=== PATIENT | female | born 1950 | race Caucasian/White ===

== ENCOUNTER 2017-02-05 08:47 | Inpatient (IN) | payer MEDICARE ==
[~2017-02-05] VITALS: Ht 149.9 cm; Wt 78.7 kg
[2017-02-05] VITALS (14 sets, daily range): BP systolic 92–137; BP diastolic 55–99; PULSE 55–72; RESP 10–20; O2SAT 94–100
[2017-02-05] MEDS: Lactated Ringer's 1,000 ML IV SCH ×3 (05:00→10:43)
[2017-02-05] MEDS: Vancomycin Inj 1,250 MG in 0.9% Sodium Chloride 250 ML IV SCH ×2 (06:00→10:00)
[~2017-02-05 08:47] MED LIST: AMT50T PO; Bupivacaine Liposome 1.3% 20 mL Inj INFILTRATE SCH; CeFAZolin Inj 2 GM in IV Premix 1 EACH IV SCH; HYDR-656 PO; MELA1TAB28 PO; OMEP40CA36 PO; OXYC-465 PO; POLY1DRO OP; SENN-133 PO; TIZA4CAP8 PO; TRIA1CAP5 PO; VIT1TABL83 PO
[2017-02-05] MEDS ORDERED: Bupivacaine-MPF 0.5% W/EPI 30 mL Inj INFILTRATE ONE (11:22)
[2017-02-05] MEDS ORDERED: 0.9% Sodium Chloride 10 mL Inj INFILTRATE ONE (11:23)
[2017-02-05] MEDS ORDERED: Lactated Ringer's 500 ML IV PRN (11:39)
[2017-02-05] MEDS ORDERED: Lactated Ringer's 1,000 ML IV SCH (11:39)
--- NOTE | 2017-02-05 11:39 | PCM.HPANE ---
Patient Data Surgeon Admitting Provider: Attending Provider:Nathan Guzmán DO Primary Care Physician:Santos Avila MD Other Provider:Jacqueline Fonseca Anesthesia Reason for Visit Right Knee Arthritis Ht/WT & BMI Height (Feet): 5 Height (Inches): 0 Weight (Kilograms): 79.46 Body Mass Index 34.00 Allergies Coded Allergies: TAPE (Verified Allergy, Severe, RASH, 05/10/16) gabapentin (Verified Adverse Reaction, Severe, TREMORS, 05/10/16) Uncoded Allergies: M.S.=SENSITIVE (Allergy, Unknown, UNKNOWN, 05/10/16) Past Anesthesia History Anesthesia History: Denies:: Abnormal Airway, Anesthesia Reactions, Difficult Intubation, Fam Anesthesia Reaction, Fam Malignant Hypertherm, Malignant Hyperthermia Diabetes History Hx Diabetes?: No MRSA MRSA: No Medications Hypertension Medication: Yes Home Meds Incl Beta Mason: No Reported Medications Vit B Comp/C/FA/Iron/Vit E (Vitamin B Complex Tablet)1 Each Tablet1 Each PO DAILY 01/29/17 Triamterene/HCTZ 37.5-25 mg 1 Each Capsule0.5-1 Capsule PO DAILY PRN edema Ref 0 01/29/17 Tizanidine 4 Mg Capsule8 Mg PO q6-8h PRN For Spasm 01/29/17 Sennosides (Senna)8.6 Mg Tablet2 Tab PO HS 01/29/17 Polyvinyl Alcohol/Povidone/Pf (Refresh Classic Eye Drops)1 Each Droperette1 Each OP PRN dry eye sx 01/29/17 oxyCODONE-Acetaminophen 7.5-325 mg 1 Each Tablet1 Tab PO Q6H PRN For Pain Ref 0 01/29/17 Omeprazole 40 Mg Capsule.dr40 Mg PO BID Ref 0 01/29/17 Melatonin/Pyridoxine HCl (B6) (Melatonin 3 mg Tablet)1 Each Tablet1 Each PO DAILY 01/29/17 hydrOXYzine Hcl (HydrOXYzine Hcl)25 Mg Vtdyfm39-01 Mg PO TID PRN For Spasm Ref 0 01/29/17 Amitriptyline 50 Mg Yte230 Mg PO HS Ref 0 01/29/17 Discontinued Reported Medications Vit B Comp/C/FA/Iron/Vit E (Vitamin B Complex Tablet)1 Each Tablet1 Each PO DAILY 05/10/16 Triamterene/HCTZ 37.5-25 mg 1 Each Capsule1 Capsule PO DAILY Ref 0 05/10/16 Carboxymethyl/Gly/Poly80/Pf (Refresh Optive Advanced Drops)1 Each Droperette1 Each AFFECT_EYE PRN 05/10/16 oxyCODONE-Acetaminophen 10-325 mg 1 Each Tablet1 Tablet PO Q6H PRN For Pain Ref 0 05/10/16 Omeprazole 40 Mg Capsule.dr40 Mg PO BID Ref 0 05/10/16 [Morphine Er] No Conflict Check15 Mg PO BID 05/10/16 Hydroxyzine Pamoate (Vistaril)25 Mg Lycfibu14-70 Mg PO QID PRN For Itching Ref 0 05/10/16 Cyclobenzaprine 5 Mg Tablet5 Mg PO TID PRN Spasm 05/10/16 Calcium/Magnesium (Calcium with Magnesium Tab)1 Each Tablet1 Each PO DAILY 05/10/16 Amitriptyline 150 Mg Zucrgf360 Mg PO HS Ref 0 05/10/16 History History of ENT Problems?: Yes HEENT History: Denies:: Abnormal Airway Cataracts Difficult Intubation Dysphagia Glaucoma Hearing Problem Sinus Problem Denture Type: None Teeth Condition: Within Normal Limits Other HEENT Pertinent History: chronic dry eye syndrome Hx of Heart Problems?: Yes Cardiovascular History: Positive for:: Edema (left foot secondary to traum) Hypertension Valvular Heart Disease (MILD MR,TR ANEURYSMAL ATRIAL SEPTUM) Denies:: Cardiac Surgery Chest Pain Congestive Heart Failure Heart Murmur Irregular Heartbeat Pacemaker Thrombophlebitis Hx of Respiratory Problem?: Yes Respiratory History: Positive for:: Pneumonia (remote hx of ) Use of C-PAP Machine Denies:: Asthma COPD Chest Surgery Dyspnea Emphysema Hemoptysis Oxygen Administration Tuberculosis Hx Neurologic Problems?: Yes Neurological History: Denies:: Alzheimer's Disease CVA Dementia Dizziness Headaches Parkinson's Disease Seizures Hx of GI Problems?: Yes Hx of Problems?: No Genitourinary History: Denies:: Kidney Stones Urinary Tract Infection Female Hx: Denies:: Currently (post menopausal) Endometriosis Pelvic Inflammatory Skin History: Positive for:: History Skin Disorders? (S/P EXC SKIN MELANOMA X3 ) Denies:: Pressure Ulcers Hx Musculoskeletal Problems?: Yes Musculoskeletal History: Positive for:: Back Injury (int. spina bifada hx- multi back surg- failed spinal cord stim placed ) Musculoskeletal Trauma (right knee current admission problem) Osteoarthritis Denies:: Fibromyalgia Joint Replacement Hx of Psycho/Social Problems?: No Psycho Social History: Positive for:: Anxiety Hx Depression Denies:: Bipolar Disorder Hx Surgeries?: Yes (multi lami, spinal cord stim, ant, ) Hx Any Other Health Problems?: Yes Other History: Positive for:: Cancer (melanoma) Hospitalization Denies:: Endocrine Disease Thyroid Disease History Blood Transfusions: Positive for:: Blood Transfusions Denies:: Blood Transfuse Reaction Hx Diabetes: No Hx Alcohol Use: YesHx Substance Use: No Smoking Status: Former Smoker Have You Smoked inLast 12 mo: No Stop/Bang S-Snoring: Do You Snore Loudly: Yes T-Tired: feel tired, fatigued: Yes O-Obsered: Observed not breath: Yes P-Blood Pressure: treated: No B- Body Mass Index > 35 kg/m2: No A- Age over 50: Yes N- Neck Large Circumference: No G- Gender Male: No KRISTEN Total Score: 4 KRISTEN Risk Assessment: High Risk, =/>3 Yes KRISTEN Category 2: Yes Risk Assessment Category Category 1A: Patient has history of documented sleep apnea, and HAS NOT received any narcotic, sedative or anesthesia administration during this stay. Category 1B: Patient has history of documented sleep apnea, and HAS received any narcotic , sedative or anesthesia administration during this stay Category 2: Patient has SUSPECTED Obstructive Sleep Apnea, and HAS received any narcotic , sedative or anesthesia administration during this stay. Category 3: Patient has SUSPECTED Obstructive Sleep Apnea and HAS NOT received narcotic, sedative or anesthesia administration during this stay. Category 4: Outpatient in Procedural Areas with known sleep apnea or who screen positive for High Risk via the STOP/BANG questionnaire. Exam Exam General Appearance: Alert HEENT/AIRWAY: MP 2, Neck Movement (FROM, 3 FB) Lungs: Clear to Auscultation Heart: Regular Rate/Rhythm Plan Impression Patient chart reviewed, patient interviewed and anesthestic plan with risks, benefits, and alternatives discussed, and informed consent obtained. NPO per Anesth. Guidelines: Yes ASA Physical Status: ASA3 Severe Disease Anesthetic Plan: GA, Regional Block, Ultra Sound Bene/Risks/Altern/Consents: Yes HP Complete Prior to Induction: Yes Other Given patient's spinal cord stimulator, we discussed GA with adductor canal block for post-op pain. All question were answered and she agrees to proceed. She assures us that her spinal cord stimulator has been turned off prior to surgery. Kranthi Childs MD Feb 05, 2017 08:36
[2017-02-05] MEDS ORDERED: MetoCLOpramide 5 mg/mL 2 mL Inj IVPUSH PRN (11:40)
[2017-02-05] MEDS ORDERED: Ondansetron 2 mg/mL 2 mL Inj IVPUSH PRN ×2 (11:40→13:30)
[2017-02-05] MEDS ORDERED: Phenylephrine 10,000 mCg/mL Inj IVPUSH PRN (11:40)
[2017-02-05] MEDS ORDERED: EPHEDrine Sulfate 50 mg/mL Inj IVPUSH PRN (11:40)
[2017-02-05] MEDS ORDERED: Dexamethasone 4 mg/mL Inj IVPUSH PRN (11:40)
[2017-02-05] MEDS: fentaNYL-PF 50 mCg/mL 2 mL Inj IVPUSH PRN ×3 (13:16→13:42)
[2017-02-05] MEDS: HYDROmorphone 1 mg/mL Inj IVPUSH PRN ×2 (13:16→13:29)
[2017-02-05] MEDS ORDERED: Polyethylene Glycol (PEG) 17 Gm Powder PO PRN (13:30)
[2017-02-05] MEDS ORDERED: hydrOXYzine Pamoate 25 mg Capsule PO PRN (13:30)
[2017-02-05] MEDS ORDERED: Sodium Biphos-Phos 133 mL Enema RECTAL PRN (13:30)
[2017-02-05] MEDS ORDERED: diphenhydrAMINE 25 mg Capsule PO PRN (13:30)
[2017-02-05] MEDS ORDERED: Magnesium Hydroxide 10 mL Oral Concentration PO PRN (13:30)
--- NOTE | 2017-02-05 13:59 | PCM.ANEP1 ---
Post Anesthesia PACU Phase 1 Assessment Vital Signs Vital Signs Date Time Temp Pulse Resp B/P Pulse Ox O2 Delivery O2 Flow Rate FiO2 02/05/17 13:56 67 13 115/99 94 Room Air 02/05/17 13:41 64 10 103/63 97 CPAP 02/05/17 13:31 63 13 109/75 100 Simple Mask 10 02/05/17 13:24 62 16 100 Simple Mask 10 02/05/17 13:20 57 18 99/60 100 Simple Mask 10 02/05/17 13:15 55 20 92/74 100 Simple Mask 10 02/05/17 13:12 70 16 99/63 100 Simple Mask 10 02/05/17 13:05 67 13 98/55 100 Simple Mask 10 02/05/17 13:01 36.5 69 12 93/55 100 Simple Mask 10 02/05/17 09:11 36.2 62 16 110/64 97 Room Air Anesthetic Administered: GA, Regional Block Level of Alertness: Awake, talking REID's with Equal Strength: No Pain: No Nausea or Vomiting: No CV Function & Hydration Stable: Yes Airway Device: Oxygen Delivery: Simple Mask Lungs: Clear to Auscultation PACU Phase 2 Assessment Complications: No Follow up Care: N/A Patient Instructions Provided: N/A Kranthi Childs MD Feb 05, 2017 13:59
--- NOTE | 2017-02-05 14:03 | DRSVH ---
PROCEDURE: X-RAY RIGHT KNEE, ONE OR TWO VIEWS ([id number]) INDICATIONS: post op TECHNIQUE: 2 view(s) of the knee acquired. COMPARISON: 09/17/2016 FINDINGS: Bones: Patient is status post knee joint arthroplasty. Hardware components are in expected position s. Visualized bony structures are intact. Soft tissues: Overlying postoperative changes are noted. IMPRESSION: Acute postoperative changes total right knee arthroplasty. Dictated by: Ayuhs Marques M.D. on 02/05/2017 at 14:01 Approved by: Ayush Marques M.D. on 02/05/2017 at 14:01
[2017-02-05] MEDS ORDERED: Acetaminophen IV 1,000 MG in IV Premix 1 EACH IV ONE (14:10)
[2017-02-05] MEDS ORDERED: fentaNYL-PF 50 mCg/mL 2 mL Inj ONE (14:43)
[2017-02-05] MEDS ORDERED: Glycopyrrolate 0.2 MG/ML 1mL Inj ONE (14:43)
[2017-02-05] MEDS ORDERED: Ketamine 10 mg/mL 20 mL Inj ONE (14:43)
[2017-02-05] MEDS ORDERED: Propofol 10,000 mCg/mL 20 mL Inj ONE (14:43)
[2017-02-05] MEDS ORDERED: Neostigmine 1 mg/mL 10 mL Inj ONE (14:43)
[2017-02-05] MEDS ORDERED: Dexamethasone 4 mg/mL Inj ONE (14:43)
[2017-02-05] MEDS ORDERED: Rocuronium 10 mg/mL 5 mL Inj ONE (14:43)
[2017-02-05] MEDS ORDERED: Ondansetron 2 mg/mL 2 mL Inj ONE (14:43)
[2017-02-05] MEDS: 0.9% Sodium Chloride 1,000 ML IV SCH (15:00)
--- NOTE | 2017-02-05 15:01 | OP ---
[address] [address] OPERATIVE REPORT PATIENT: TODD BARRY : 1950 MR#: [id number] ADMIT: 02/05/2017 JOB ID: [id number] DATE OF SURGERY: 02/05/2017 PREOPERATIVE DIAGNOSIS(ES): Right knee degenerative joint disease. POSTOPERATIVE DIAGNOSIS(ES): Right knee degenerative joint disease. PROCEDURE: Right total knee arthroplasty. SURGEON: Nathan Guzmán MD. AGRICULTURAL EXTENSION SPECIALIST: Leydi Hammonds PA-C. INDICATIONS: The patient is a 66-year-old female with right knee severe degenerative arthritis with failed conservative measures and wished to proceed with a right total knee arthroplasty. We discussed the risks, benefits, and possible complications of surgery including, but not limited to injury to nerves and vessels, infection, bleeding, incomplete relief of symptoms, stiffness, need for additional procedures. The patient had good understanding. All questions were answered and she wished to proceed. operations and intelligence assistant was required for the successful completion of this procedure. PROCEDURE IN DETAIL: The patient was brought to the operating room. She was given a preoperative antibiotic and femoral nerve block with general anesthetic. The right lower extremity was sterilely prepped and draped. A surgical time-out was performed. 1 g TXA was given preoperatively and Ancef was also given preoperatively, as well as vancomycin. An incision was made centered over the anteromedial knee longitudinally. Dissection was carefully carried through subcutaneous tissue. Electrocautery was used for hemostasis. A split was then made in the quad tendon leaving a cuff of tissue for repair. This was taken along the medial retinaculum and down onto the proximal medial tibial face. The patella was quite tight and could not be everted. A portion of the fat pad was removed. A small medial release was performed and the femur was instrumented with the intramedullary nancy and then pinned into position. The distal femoral cut was performed and the femur and the tibia was then addressed with an extramedullary tibial cutting guide placed parallel to the long axis of the tibia. The tibial cut was performed, completed with an osteotome and removed. The femur was then sized, felt to be a size three, and the 3-degree external rotation block was dialed in. Pins were placed and the 4-in-1 cutting block was placed and cuts were performed. The tibia was then sized, felt to be a size 3 as well, and the notch cut was performed. The tibia was drilled and punched. The femur was drilled with the lugs and the trials were performed. She had some tightness medially and some additional medial release was performed. Her patella measured only 19 mm thick, and I felt it was too thin to resurface and she had good cartilage without degeneration. Therefore, I felt that it could go unresurfaced. The bony surfaces were washed and dried, and the components were then cemented into position beginning with the DePuy Attune 3 fixed-bearing tibia, followed by the DePuy Attune posterior stabilized 3 femur, and a 5 mm thick poly. All excess cement was removed. After the cement was allowed to polymerize, the tourniquet was let down. Electrocautery was used for hemostasis. The wound was copiously irrigated and then closed with interrupted #1 Surgilon to repair the capsule and 0 Vicryl to repair the patellar tendon. The subcu was closed with a 2-0 running V-Loc and the skin was closed with a running 3-0 subcuticular V-Loc. A mixture of Marcaine, Exparel, and saline was also added as an adjunct local anesthetic. Patient tolerated the procedure well. Blood loss was 75 cc. POSTOPERATIVE PROTOCOL: Have the patient weightbear to tolerance. Use a walker for ambulation and will plan Lovenox for DVT prophylaxis for 10 days postoperatively, followed by aspirin, and also plan Percocet 10/325 for pain, as the patient had been taking Percocet 7.5/325 for chronic pain preoperatively.
[2017-02-05] MEDS: Sodium Chloride LOK Flush 10 mL Syringe IV SCH (16:26)
[2017-02-05] MEDS: oxyCODONE-Acetamin 10-325 mg Tablet PO PRN (18:09)
[2017-02-05] MEDS ORDERED: CeFAZolin Inj 2 GM in IV Premix 1 EACH IV SCH (19:00)
[2017-02-05] MEDS: CeFAZolin 2 Gm/50 mL D5W IV Premix IV SCH (20:20)
[2017-02-05] MEDS: Senna-Docusate 8.6-50 mg Tablet PO SCH (20:30)
[2017-02-05] MEDS: Pantoprazole 40 mg ER24 Tablet PO SCH (22:16)
[2017-02-06] MEDS: Sodium Chloride LOK Flush 10 mL Syringe IV SCH ×4 (00:30→20:32)
[2017-02-06 00:47] VITALS: BP 120/73; PULSE 71; RESP 16; O2SAT 98
[2017-02-06] MEDS: 0.9% Sodium Chloride 1,000 ML IV SCH ×3 (01:23→19:27)
[2017-02-06] MEDS: CeFAZolin 2 Gm/50 mL D5W IV Premix IV SCH (03:06)
--- NOTE | 2017-02-06 06:13 | PCM.PNORTH ---
Subjective Date of Service: Feb 06, 2017 Visit Information: Reason for Visit Right Knee Arthritis Surgery/Surgery Date right total knee 02/05/17 Post-Op Day # 1 Date of Admission: Feb 05, 2017 at 14:42 Hospital Day # Subjective The patient was a prior soft and the bathroom this morning. However she is having some pain management issues. She has not yet been up with physical therapy. Postop General: No Shortness of Breath, No Chest Pain, Good Appetite Pain Management: PO Objective Exam Objective Patient is seen lying in bed with her at bedside Vital Signs and I/O Vital Sign - Last Date Time Temp Pulse Resp B/P Pulse Ox O2 Delivery O2 Flow Rate FiO2 02/06/17 06:05 21 02/06/17 00:47 36.7 71 16 120/73 98 Nasal Cannula 2.00 Intake and Output 02/05/17 02/05/17 02/06/17 Cumulative From/Thru 15:00 23:00 07:00 01/29/17 12:10 - 02/06/17 06:02 Intake Total 2320 ml 800 ml 3120 ml Output Total 75 ml 1850 ml 1925 ml Balance 2245 ml -1050 ml 1195 ml Intake Oral 800 ml 800 ml IV Total 2320 ml 2320 ml Output Urine Total 1850 ml 1850 ml Estimated Blood Loss 75 ml 75 ml # Bowel Movements 0 0 Lab & Micro Results Laboratory Tests Test 02/06/17 05:15 General Appearance: Alert, Oriented X3, Cooperative, No Acute Distress Extremities: Distal Pulses Palpable, No Compartment Syndrom Noted, Thigh & Calf Soft/Nontender Postop Sensory Motor: Distal Motor Intact, Distal Sensation Intact, NVI Distally SURGICAL WOUND : Wound Location/Description Right knee: Surgical dressing is clean dry and intact. No direct observation of the wound. Activity: Activity per PT Catheters: None Assessment & Plan Impression POD #1 Right TKA Problems: Plan Weightbearing: Weightbearing as tolerated with walker DVT prophylaxis: Lovenox 40 mg subcutaneous 2 weeks followed by aspirin 325 mg twice a day 4 weeks Physical therapy for transfers, progressive ambulation, therapeutic exercise Wound care: PA will change dressing on postop day 2 Discharge plan: Discharge home tomorrow. Start outpatient physical therapy next week Follow-up plan: In 2 weeks at [facility] with PA for wound check and at [address] Guzmán with x-rays Pain Management: Toradol, oxycodone, Percocet 10/325mg, Tylenol VTE Prophylaxis: Sub-Q Enoxaparin, SCDs Resuscitation Status: CPR: Attempt Resuscitation [place]di Martel PA-C Feb 06, 2017 06:13
[2017-02-06 06:17] LABS: BASOPHILS % (AUTO) 0.1 % (0-3); EOSINOPHILS % (AUTO) 0 % (0-5); MONOCYTES % (AUTO) 9.4 % (4-12); Mean Corpuscular Volume 78.1 fL (81-100); NEUTROPHILS % (AUTO) 83.4 % (40-74); Platelet Count 299 bil/L (150-400)
[2017-02-06] MEDS: Senna-Docusate 8.6-50 mg Tablet PO SCH ×2 (08:01→20:27)
[2017-02-06] MEDS: Pantoprazole 40 mg ER24 Tablet PO SCH ×2 (08:01→20:30)
[2017-02-06] MEDS: Vitamin B Complex/Vit C Tablet PO SCH (08:01)
[2017-02-06] MEDS: oxyCODONE-Acetamin 10-325 mg Tablet PO PRN ×4 (08:02→20:27)
[2017-02-06] MEDS ORDERED: Potassium Chloride 20 mEq SR Tablet PO ONE (08:10)
[2017-02-06 08:55] VITALS: BP 122/73; PULSE 88; RESP 18; O2SAT 97
[2017-02-06 20:20] VITALS: BP 161/78; PULSE 76; RESP 18; O2SAT 98
[2017-02-07] MEDS: oxyCODONE-Acetamin 10-325 mg Tablet PO PRN ×3 (00:44→09:29)
[2017-02-07] MEDS: 0.9% Sodium Chloride 1,000 ML IV SCH (05:27)
[2017-02-07 05:33] LABS: Mean Corpuscular Hemoglobin 26.4 pg (27.0-35.0); Mean Corpuscular Volume 79 fL (81-100); NEUTROPHILS % (AUTO) 63 % (40-74); Platelet Count 256 bil/L (150-400)
[2017-02-07 05:34] LABS: BASOPHILS % (AUTO) 0 % (0-3); EOSINOPHILS % (AUTO) 1 % (0-5); MONOCYTES % (AUTO) 12 % (4-12)
[2017-02-07 06:42] VITALS: BP 135/67; PULSE 88; RESP 18; O2SAT 96
[2017-02-07 08:50] VITALS: PULSE 100
[2017-02-07] MEDS: Vitamin B Complex/Vit C Tablet PO SCH (09:20)
[2017-02-07] MEDS: Senna-Docusate 8.6-50 mg Tablet PO SCH (09:21)
[2017-02-07] MEDS: Pantoprazole 40 mg ER24 Tablet PO SCH (09:21)
[2017-02-07] MEDS: Sodium Chloride LOK Flush 10 mL Syringe IV SCH (09:21)
--- NOTE | 2017-02-07 10:36 | PCM.PNORTH ---
Subjective Date of Service: Feb 07, 2017 Visit Information: Reason for Visit Right Knee Arthritis Surgery/Surgery Date right total knee 02/05/17 Post-Op Day # 2 Date of Admission: Feb 05, 2017 at 14:42 Hospital Day # Subjective Patient is sitting up in bed sleeping. In light to return down and the surgical leg is moved, she barely opens her eyes. There were nursing reports increased pain patient appears rather somnolent today. She has very been up with physical therapy and has been cleared for discharge. Outpatient physical therapy scheduled to start next week. Postop General: No Complaints Pain Management: PO Objective Exam Objective Patient is sitting up in bed sleeping. She barely opens her eyes when the lights are turned or where the right leg is moved. Vital Signs and I/O Vital Sign - Last Date Time Temp Pulse Resp B/P Pulse Ox O2 Delivery O2 Flow Rate FiO2 02/07/17 08:50 100 Room Air 02/07/17 06:42 36.8 18 135/67 96 02/06/17 06:05 21 02/06/17 00:47 2.00 Intake and Output 02/06/17 02/06/17 02/07/17 Cumulative From/Thru 15:00 23:00 07:00 01/29/17 12:10 - 02/07/17 05:55 Intake Total 920 ml 800 ml 6369 ml Output Total 650 ml 920 ml 3495 ml Balance 270 ml -120 ml 2874 ml Intake Oral 920 ml 800 ml 2520 ml IV Total 3849 ml Output Urine Total 650 ml 920 ml 3420 ml Estimated Blood Loss 75 ml # Bowel Movements 0 0 Lab & Micro Results Laboratory Tests Test 02/07/17 05:00 White Blood Count 9.3th/mm3 (3.8-10.1) Red Blood Count 3.97mil/mm3 (3.90-5.20) Hemoglobin 10.5g/dL (12.0-15.6) Hematocrit 31.7% (35.0-46.0) Mean Corpuscular Volume 79fL (81-100) Mean Corpuscular Hemoglobin 26.4pg (27.0-35.0) Mean Corpuscular Hemoglobin Concent 33.1% (32.0-37.0) Red Cell Distribution Width 14.7% (12.3-15.4) Platelet Count 256bil/L (150-400) Neutrophils (%) (Auto) 63% (40-74) Lymphocytes (%) (Auto) 24% (14-46) Monocytes (%) (Auto) 12% (4-12) Eosinophils (%) (Auto) 1% (0-5) Basophils (%) (Auto) 0% (0-3) Sodium Level 139mEq/L (134-144) Potassium Level 3.7mEq/L (3.5-5.2) Chloride Level 96mEq/L (97-108) Carbon Dioxide Level 32mmol/L (18-29) Blood Urea Nitrogen 8mg/dL (8-27) Creatinine 0.58mg/dL (0.57-1.00) Estimat Glomerular Filtration Rate 150mL/min (>59) Glucose Level 122mg/dL (60-99) Calcium Level 8.9mg/dL (8.5-10.1) Result Diagram: 02/07/17 0500 02/07/17 0500 General Appearance: No Acute Distress Extremities: Distal Pulses Palpable, No Compartment Syndrom Noted, Thigh & Calf Soft/Nontender Postop Sensory Motor: Distal Motor Intact, Distal Sensation Intact, NVI Distally SURGICAL WOUND : Wound Location/Description Right knee: Surgical dressing is removed. There is scant serous drainage on the bandage. Wound is clean and dry with no erythema. Steri-Strips are intact. The wound is well approximated. The wound is cleansed with hydrogen peroxide. A new dressing is applied with Silverlon and Island dressing. Activity: Activity per PT Catheters: None Assessment & Plan Impression POD #2 status post right total knee arthroplasty Problems: Plan Weightbearing: Weightbearing as tolerated with walker DVT prophylaxis: Lovenox 40 mg subcutaneous 2 weeks followed by aspirin 325 mg twice a day 4 weeks Physical therapy for transfers, progressive ambulation, therapeutic exercise. Patient has performed quite well in physical therapy and has been cleared for discharge Wound care: Dressing is changed today. The wound looks very good. No erythema or drainage seen. Even with lights on and moving the right leg, the patient barely open her eyes or responded. I do not recommend increasing pain medication due to somnolence and risk of respiratory suppression. Patient will be discharged home on Percocet 10s and Vistaril Discharge plan: Discharge home today when patient is more awake. Start outpatient physical therapy next week Follow-up plan: In 2 weeks at [facility] with EMI for wound check and at [address] Guzmán with x-rays Pain Management: Percocet 10/325, Toradol, oxycodone, Vistaril VTE Prophylaxis: Sub-Q Enoxaparin, SCDs Resuscitation Status: CPR: Attempt Resuscitation Leydi Hammonds PA-C Feb 07, 2017 10:36
--- NOTE | 2017-02-07 10:42 | PCM.DIORTH ---
Ortho Discharge Instruction Date of Service: Feb 07, 2017 Dates of Hospitalization Date of Hospital Admission Feb 05, 2017 at 14:42 Providers Admitting Physician: Nathan Guzmán DO Primary Care Physician: Santos Avila MD Attending Physician: Nathan Guzmán DO Diet Discharge Diet: No restrictions Activity Discharge Activity-General: Try not to overdue, Be up and about, Balance rest and activity, Elevate & ice extremity, Ice incision 3-5 time/day for 20min Right Lower Extremity: Weight Bearing as tolerated Discharge Assist Device: Front Wheeled Walker Dressing and Incisional Care Discharge Dressing Care: Keep dressing clean, dry & intact Discharge Hygiene: May shower (see instructions below), DO NOT soak incision under water (for 2 weeks), NO bathtub, hot tub or whirlpool (for 2 weeks) Additional Instructions Discharge Instructions Weightbearing: Weightbearing as tolerated with walker DVT prophylaxis: Lovenox 40 mg subcutaneous 2 weeks followed by aspirin 325 mg twice a day 4 weeks Activity: Get up and move every hour of the day you are wake. Get up and do exercises you have learned in therapy or walk. Work on bending and straightening the knee. Increased walking a little more each day. Start out patient Physical therapy next week. Wound care: Change dressing every 2-3 days. Leave the Steri-Strips in place on the skin until the first postop visit. Reuse the silver dressing for 1 week. Wear thigh-high compression stockings for 1 month on the right leg On Saturday the patient may shower if the wound has no drainage present. Wound may be uncovered to shower. Let soap and water run over the wound, pat dry and apply a new dressing. Follow Up Plan Follow Up Plan Follow-up plan: In 2 weeks at [facility] with EMI for wound check and at [address] Guzmán with x-rays Call your provider for: Fever, Chills, Shortness of breath, Vomitting, Drainage at incision, Wound redness, Increasing pain Leydi Hammonds PA-C Feb 07, 2017 10:42
--- NOTE | 2017-02-07 10:44 | PCM.DC.ORT ---
Discharge Summary Date of Service: Feb 07, 2017 Date of Hospital Admission: Feb 05, 2017 at 14:42 Date of Surgery: Feb 05, 2017 Date of Discharge: Feb 07, 2017 Reason for Hospitalization: Right knee arthritis Procedures Performed: Right total knee arthroplasty Hospital Course: The patient was admitted to the hospital on 02/05/2017 and underwent the above procedure. Antibiotic prophylaxis consisting of Ancef and vancomycin. The surgeon was Dr. Guzmán. A Jarrett was placed perioperatively. Patient tolerated the procedure well and was transferred to recovery room in stable condition. Jarrett was discontinued on postop day 1. Patient had physical therapy to work on ambulation and transfers. Weightbearing as tolerated with walker. Pain was managed with Dilaudid, Percocet 10/325, Vistaril, Toradol. DVT prophylaxis: Lovenox, SCDs. Patient progressed well with physical therapy and on POD-2 was discharged home. Follow-up: at [facility] 2 weeks postop for wound check and at [address] Guzmán with x-ray. Start outpatient PT next week. Diagnosis at Time of Discharge Status post right total knee arthroplasty Problems: Disposition: Discharged home in stable condition Discharge Instructions: Discharge Activity-General: Try not to overdue, Be up and about, Balance rest and activity, Elevate & ice extremity, Ice incision 3-5 time/day for 20min Right Lower Extremity: Weight Bearing as tolerated Discharge Assist Device: Front Wheeled Walker Dressing and Incisional Care Discharge Dressing Care: Keep dressing clean, dry & intact Discharge Hygiene: May shower (see instructions below), DO NOT soak incision under water (for 2 weeks), NO bathtub, hot tub or whirlpool (for 2 weeks) Discharge Instructions Weightbearing: Weightbearing as tolerated with walker DVT prophylaxis: Lovenox 40 mg subcutaneous 2 weeks followed by aspirin 325 mg twice a day 4 weeks Activity: Get up and move every hour of the day you are wake. Get up and do exercises you have learned in therapy or walk. Work on bending and straightening the knee. Increased walking a little more each day. Start out patient Physical therapy next week. Wound care: Change dressing every 2-3 days. Leave the Steri-Strips in place on the skin until the first postop visit. Reuse the silver dressing for 1 week. Wear thigh-high compression stockings for 1 month on the right leg On Saturday the patient may shower if the wound has no drainage present. Wound may be uncovered to shower. Let soap and water run over the wound, pat dry and apply a new dressing. Amitriptyline (Amitriptyline) 50 Mg Tab 150 MG PO HS Enoxaparin Sodium (Enoxaparin Sodium) 40 Mg/0.4 Ml Syringe 40 MG SUBQ Q24 Melatonin/Pyridoxine HCl (B6) (Melatonin 3 mg Tablet) 1 Each Tablet 1 EACH PO DAILY Omeprazole (Omeprazole) 40 Mg Capsule.dr 40 MG PO BID Polyvinyl Alcohol/Povidone/Pf (Refresh Classic Eye Drops) 1 Each Droperette 1 EACH OP PRN dry eye sx Sennosides (Senna) 8.6 Mg Tablet 2 TAB PO HS Tizanidine (Tizanidine) 4 Mg Capsule 8 MG PO q6-8h PRN PRN For Spasm Triamterene/HCTZ 37.5-25 mg (Triamterene/HCTZ 37.5-25 mg) 1 Each Capsule 0.5-1 CAPSULE PO DAILY PRN PRN edema Vit B Comp/C/FA/Iron/Vit E (Vitamin B Complex Tablet) 1 Each Tablet 1 EACH PO DAILY hydrOXYzine Hcl (HydrOXYzine Hcl) 25 Mg Tablet 25-75 MG PO TID PRN PRN For Spasm oxyCODONE-Acetaminophen 10-325 mg (oxyCODONE-Acetaminophen 10-325 mg) 1 Each Tablet 1-2 TAB PO Q4H PRN PRN For Pain Max 8 per day Leydi Hammonds PA-C Feb 07, 2017 10:44 Leydi Hammonds PA-C Feb 07, 2017 10:44
[2017-02-07] MEDS ORDERED: OXYC-466 PO (10:47)
[2017-02-07] MEDS ORDERED: ENOX40DI8 SUBQ (10:47)
== END 2017-02-07 12:35 | disposition home or self-care (01) | DRG 470 ==
LOC: SAS 08:47 → OSC 14:42
PROVIDERS: ADMIT Orthopaedic Surgery; ATTEND Orthopaedic Surgery
PROC: 0SRC0J9 Replacement of Right Knee Joint with Synthetic Substitute, Cemented, Open Approach (ICD-10-PCS; principal; 2017-02-05 10:45)
DX: M17.11 Unilateral primary osteoarthritis, right knee (principal)